=== PATIENT | male | born 1955 | race Caucasian/White ===

== ENCOUNTER → 2020-10-27 | Outpatient (CLI) | payer OTHER ==
[2020-10-27 16:09] LABS: HGB 14.5 gm/dL (13.0-17.5); MCH 30.4 pg (25.0-35.0); MCHC 34.6 g/dL (31.0-37.0); MCV 87.8 fL (80.0-100.0); Mean Platelet Volume 7.9; Platelet Count 134 k/uL (150-450); RBC 4.78 m/uL (4.30-5.90); RDW 12.7 % (11.5-15.5); WBC 6.5 k/uL (3.8-10.6)
[2020-10-27 16:17] LABS: Partial Thromboplastin Time 23.8 sec (22.0-30.0); Prothrombin Time 9.9 sec (9.0-12.0)
[2020-10-27 16:18] LABS: ALT 36 U/L (4-49); AST 31 U/L (17-59); African American GFR (CKD) >90 (>60 ml/min/1.73 sqM); Albumin 4.8 g/dL (3.5-5.0); Alkaline Phosphatase 60 U/L (38-126); Anion Gap 5 mmol/L; Blood Urea Nitrogen 27 mg/dL (9-20); Calcium 9.3 mg/dL (8.4-10.2); Carbon Dioxide 26 mmol/L (22-30); Chloride 107 mmol/L (98-107); Glucose 105 mg/dL (74-99); Non-African American GFR(CKD) >90 (>60 ml/min/1.73 sqM); Potassium 4.6 mmol/L (3.5-5.1); Sodium 138 mmol/L (137-145); Total Bilirubin 0.6 mg/dL (0.2-1.3); Total Protein 7.5 g/dL (6.3-8.2)
[2020-10-27 16:57] LABS: Appearance,Urine Clear (Clear); Bilirubin,Urine Negative (Negative); Blood,Urine Negative (Negative); Color,Urine Yellow; Glucose,Urine (UA) Negative (Negative); Ketones,Urine Negative (Negative); Leukocyte Esterase,Urine Negative (Negative); Nitrite,Urine Negative (Negative); Protein,Urine Negative (Negative); Specific Gravity,Urine 1.027 (1.001-1.035); Urobilinogen,Urine <2.0 mg/dL (<2.0)
== END | disposition home or self-care (01) ==
LOC: LABPAT 15:31
PROVIDERS: ATTEND Orthopaedic Surgery
DX: Z01.818 Encounter for other preprocedural examination (principal); Z01.812 Encounter for preprocedural laboratory examination
CPT/HCPCS: 80053; 81003; 85027; 85610; 85730; 87070; 93005

== ENCOUNTER 2020-11-06 10:48 | Day surgery (SDC) | payer OTHER ==
[2020-11-04 11:27] VITALS: BMI 30.8
[~2020-11-06 10:48] MED LIST: ACETAMINOPHEN TAB 500 MG TAB PO PRN; GABAPENTIN 300 MG CAP PO PRN; HYDROmorphone 0.5 MG/0.5 ML SYRINGE IVP PRN; LACTATED RINGERS 1,000 ML IV SCH; MELOXICAM 7.5 MG TAB PO PRN; MIDAZOLAM 2 MG/2 ML VIAL IV PRN; ONDANSETRON 4 MG/2 ML VIAL IVP PRN; Ropivacaine 246 mg in RECK SYR 246 MG, Epinephrine 0.5 mg in RECK SYR 0.5 MG, Clonidine... MISCELLANE PRN; TRANEXAMIC ACID 1,000 MG in SODIUM CHLORIDE 0.9% 100 ML IVPB PRN
[2020-11-06] MEDS ORDERED: MIDAZOLAM 2 MG/2 ML VIAL IVP ONE (12:05)
[2020-11-06] MEDS ORDERED: DEXAMETHASONE SOD PHOSPHATE 4 MG/ML 1 ML VIAL IVP ONE (12:23)
[2020-11-06] MEDS ORDERED: TRANEXAMIC ACID 1,000 MG/10 ML VIAL ONE (12:31)
[2020-11-06] MEDS ORDERED: SODIUM CHLORIDE 0.9% 100 ML BAG ONE (12:31)
[2020-11-06] MEDS ORDERED: ePHEDrine SULFATE/0.9% NACL/PF 50 MG/5 ML SYRINGE IV ONE (12:31)
[2020-11-06] MEDS ORDERED: LIDOCAINE 1% INJ 10MG/ML (20 ML MDV) ONE (12:31)
[2020-11-06] MEDS ORDERED: fentaNYL (PF) 50 MCG/ML 2 ML AMP ONE (12:31)
[2020-11-06] MEDS ORDERED: MIDAZOLAM 2 MG/2 ML VIAL ONE (12:31)
[2020-11-06] MEDS ORDERED: HYDROmorphone (PF) 1 MG/ML ONE (12:31)
[2020-11-06] MEDS ORDERED: PROPOFOL 10 MG/ML 20 ML VIAL IV ONE (12:31)
[2020-11-06] MEDS ORDERED: SUCCINYLCHOLINE CHLORIDE 100 MG/5 ML SYR IV ONE (12:31)
[2020-11-06] MEDS ORDERED: ROPIVACAINE/EPI/CLONIDINE/KET 50 ML SYRINGE MISCELLANE ONE ×2 (13:14)
[2020-11-06] MEDS ORDERED: ceFAZolin 3,000 MG in SODIUM CHLORIDE 0.9% IRRIGATIO 3,000 ML IRRIGATION ONE (13:15)
[2020-11-06] MEDS ORDERED: LACTATED RINGERS 1,000 ML IV ONE (13:18)
[2020-11-06] MEDS ORDERED: ROPIVACAINE 0.2%-NS ON-Q PUMP 1,090 MG, EMPTY PAIN BALL 1 EACH MISCELLANE PRN (13:32)
--- NOTE | 2020-11-06 13:35 | P.ANPRN ---
Procedure Note - Anesthesia - Nerve Block Performed Right Adductor Canal Time Out Performed: Yes (12:04) Date of Procedure: 11/06/20 Procedure Start Time: Procedure Stop Time: Indication: Acute Post-Operative Pain, Requested by Surgeon (Dr Rhoades) Sedation Type: Sedate with meaningful contact maintained Preparation: Sterile Prep, Sterile Dressing Position: Supine Catheter: Indwelling Needle Types: Pajunk Needle Gauge: 21 Ultrasound used to visualize needle placement: Yes Ultrasound used to observe medication spread: Yes Injectate: 0.5% Ropivacaine (see comment for volume) (20cc) Blood Aspirated: No Pain Paresthesia on Injection Noted: No Resistance on Injection: Normal Image Stored and Saved: Yes Events: Uneventful and Well Tolerated
--- NOTE | 2020-11-06 15:25 | XR ---
EXAMINATION TYPE: XR knee limited RT DATE OF EXAM: 11/06/2020 COMPARISON: None HISTORY: Partial knee replacement TECHNIQUE: 2 view right knee FINDINGS: Medial tibial femoral components of in place. Surgical soft tissue changes are evident. No acute fractures are evident post partial knee replacement IMPRESSION: 1. No acute fractures post knee replacement
[2020-11-06 16:38] VITALS: BP 154/72; PULSE 78; RESP 18; TEMP 98.6
--- NOTE | 2020-11-06 22:14 | P.OP ---
Date of Procedure: 11/06/20 Procedure(s) Performed: UKA medial ZUK [employer] with [employer] custom guides for initial femoral and tibial cuts minimal arthritic change of lateral and patellofemoral compartments yasmeen de los santos 50 cc ebl no complications PREOPERATIVE DIAGNOSIS: Right knee severe medial compartment osteoarthritis with genu varum POSTOPERATIVE DIAGNOSIS: Right knee severe medial compartment osteoarthritis with genu varum OPERATION: Right knee medial compartment cemented unicompartmental replacement arthroplasty (metal on polyethylene) ANESTHESIA: Spinal ESTIMATED BLOOD LOSS: 50 ml. ROSE GROWER: Yasmeen De Los Santos PA-C (assistance with: patient positioning, retraction, exposure, hemostasis, leg positioning, implantation, irrigation, closure, dressing) COMPLICATIONS: None apparent. COMPONENTS IMPLANTED: Nishi unicompartmental knee system from [employer] INDICATIONS: Mr. Steel is a 65-year-old male with a history of right knee unicompartmental medial osteoarthritis. Conservative management has failed. He has a mild degree of arthritis involving the patellofemoral and lateral compartments. The operation of medial unicompartmental knee replacement has been discussed at length in the office, as well as potential risks and complications. These are inclusive of, but not limited to: bleeding, infection, scarring, discomfort, blood vessel and nerve damage, need for further surgery, failure to relieve symptoms, persistence, recurrence, or worsening of problems, loosening, dislocation, wear, blood clot, pulmonary embolism, , gait dysfunction, stiffness, and other risks as discussed in the office. The patient elects to proceed and the consent form has been signed. PROCEDURE: The patient was taken to the operating room and positioned on the operating room table in the supine position. Anesthesia was initiated. Care was taken to make sure that all pressure points were adequately padded. The operative lower extremity was prepped and draped in the usual aseptic fashion using ChloraPrep. Ioban drape was used for the case and the patient received intravenous antibiotics within one hour of the incision. A pneumotourniquet and leg aguayo were used for the case. The limb was exsanguinated with an Esmarch bandage and the tourniquet was inflated to 350 mmHg. Time-out was called confirming the patient's identity, side, procedure and administration of antibiotics and tranexamic acid. The incision was then created over the medial aspect of the knee from approximately the superior pole of the patella down to adjacent to the tibial tubercle. Incision was carried down through skin and into subcutaneous tissues and sharp dissection was carried down to fascia. Hemostasis was obtained using electrocautery. Medial parapatellar arthrotomy was performed from approximately the level of the VMO to just below the tibial surface. Partial fat pad was res ected and due to the previous surgeries this patient has had, the fat pad was somewhat scarred. These adhesions within the fat pad were released using cautery. This allowed better patellar mobilization. Excellent visualization of the medial compartment was accomplished. Retractors were placed within the notch and the medial condyle. Careful release of the anterior medial soft tissues from bone was accomplished using sharp dissection. This was carried to but not into the medial collateral ligament. Tibial cut was performed first. The guide for the tibial cut was attached to the patient's lower extremity and the guide was placed against the bone. Materialize guides were used which allowed for computer analysis and planning for the actual cut to be precisely matched to this patient's anatomy. The depth of resection and alignment of the cut in all planes was determined by the guide. The guide was then pinned into position and the cut was created using an oscillating saw along with a reciprocating saw for the sagittal cut. The tibial fragment was then removed and the surface finished. Medial meniscus remnant was removed at this time. Femoral cut was created in the same fashion using a custom [employer] guide for depth of resection and alignment of the cut. The distal femoral cut was then created through this guide and the fragment was removed. Flexion and extension gaps were then assessed and found to be satisfactory using spacer block technique. The knee was then bent to 90 retractors were placed and the guide for femoral finishing was placed. Femur was finished using this guide. Next, tibia was sized and finished and the trial component was left in place. Femoral trial component was placed, and 8 mm spacer was utilized for trial. Excellent range of motion, stability, and alignment were noted. The trial components were then removed and the femoral and tibial surfaces were pulse lavaged and dried for cementing. Cement was mixed on the back table and applied to the final components. Cement was also pressurized into the bone with finger pressurization technique. Final components were then impacted into place and excess cement was removed. The 8 mm trial spacer was laced during this process. Axial force was applied to the leg during the curing process of the cement. Once the cement had fully hardened, excess cement was further removed, and the knee was assessed for range of motion stability and alignment based on the thickness of the planned polyethylene spacer. The 8 mm spacer was called for and implanted. Final range of motion and stability check was satisfactory. The tourniquet was deflated and hemostasis was obtained with electrocautery, another gram of tranexamic acid, and bone wax. Closure was performed of the fascia using a combination of #2 Ethibond suture as well as a running strata fix suture. Subcu closure was performed with 2-0 Vicryl suture in interrupted fashion followed by strata fix suture in running subcuticular fashion for the skin and Exofin topical dressing. A lightly compressive dressing was applied using Webril and an Roland wrap. The patient was then transferred to stretcher and taken to the recovery room in stable condition. Sponge and needle counts were correct.
== END 2020-11-06 18:47 | disposition home or self-care (01) ==
LOC: OR 10:48 → 4SSUR 14:54 → OR 18:47
PROVIDERS: ATTEND Orthopaedic Surgery
DX: M17.11 Unilateral primary osteoarthritis, right knee (principal); M23.203 Derangement of unspecified medial meniscus due to old tear or injury, right knee; I10 Essential (primary) hypertension; J45.909 Unspecified asthma, uncomplicated; G47.33 Obstructive sleep apnea (adult) (pediatric); Z79.899 Other long term (current) drug therapy; Z79.82 Long term (current) use of aspirin; Z90.89 Acquired absence of other organs; Z98.890 Other specified postprocedural states; Z97.3 Presence of spectacles and contact lenses
CPT/HCPCS: 27446; 64448; 76942; 88300; 73560; C1713; C1776; J2250; J1100; J0690 ×2; J2405; J2001; J3010; J1170; J0330; J2704

== ENCOUNTER → 2021-12-01 | Outpatient (CLI) | payer OTHER ==
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
== END | disposition home or self-care (01) ==
LOC: RADMRIMAIN 20:32
PROVIDERS: ATTEND Orthopaedic Surgery
DX: M47.812 Spondylosis without myelopathy or radiculopathy, cervical region (principal); M43.22 Fusion of spine, cervical region; M43.12 Spondylolisthesis, cervical region; M50.223 Other cervical disc displacement at C6-C7 level; M99.71 Connective tissue and disc stenosis of intervertebral foramina of cervical region
CPT/HCPCS: 72141

== ENCOUNTER → 2022-03-11 | Outpatient (CLI) | payer OTHER | END | disposition home or self-care (01) | LOC: LABPAT 11:03 | PROVIDERS: ATTEND Orthopaedic Surgery | DX: Z01.812 Encounter for preprocedural laboratory examination (principal); M48.02 Spinal stenosis, cervical region; Z22.322 Carrier or suspected carrier of Methicillin resistant Staphylococcus aureus | CPT/HCPCS: 87070 ==

== ENCOUNTER → 2022-07-07 | Outpatient (CLI) | payer MEDICARE ==
--- NOTE | 2022-07-08 06:49 | CT ---
EXAMINATION TYPE: CT cervical spine wo con DATE OF EXAM: 07/07/2022 COMPARISON: MRI cervical spine December 01, 2021 HISTORY: Cervical stenosis CT DLP: 579.8 mGycm. Automated Exposure Control for Dose Reduction was Utilized. TECHNIQUE: CT scan of the cervical spine is obtained without contrast, axial images are obtained, sa gittal and coronal reformatted images are also reviewed. FINDINGS: Coronal images show persistent dextroconvex scoliosis centered in the upper thoracic spine. There is slight grade 1 retrolisthesis C4 on C5 redemonstrated.. Prevertebral soft tissue appears w ithin normal limits. The C1-C2 articulation is within normal limits on the coronal images. Vertebral body heights are maintained. There is severe disc space narrowing with posterior ossific fusion invo lving the C5-C6 vertebra. There is some ossific fusion of the spinous processes at C5-C6 level. Mild disc space narrowing C4-C5 level with mild to moderate anterior spurring. Moderate to severe disc spa ce narrowing and spurring at C6-C7 level. Review of axial images shows C2-C3 level to appear within normal limits. Axial images at C3-C4 level shows broad-based posterior disc protrusion effacing anterior thecal sac with bilateral uncovertebral facet spurring causing mild to moderate left greater than right bilatera l neural foraminal narrowing. Axial images at C4-C5 level shows broad-based right paracentral disc protrusion with right foraminal spurring effacing anterior thecal sac and causing asymmetric moderate to severe right-sided neural fo raminal narrowing. Axial images at C5-C6 level appear within normal limits. Axial images at C6-C7 level show broad-based left paracentral spur disc complex with foraminal spurri ng causing moderate to severe left greater than right bilateral neural foraminal narrowing. Axial images at C7-T1 level appear within normal limits. Thyroid gland appears normal in size. Lung a pices show no pneumothorax. IMPRESSION: Dextroconvex scoliosis redemonstrated. Some ossific fusion at C5-C6 level is noted. Mult ilevel degenerative changes are present with greatest findings noted C4-C5 and C6-C7 levels as detail ed above.
== END | disposition home or self-care (01) ==
LOC: RADCTMAIN 16:28
PROVIDERS: ATTEND Orthopaedic Surgery
DX: M48.02 Spinal stenosis, cervical region (principal); M50.21 Other cervical disc displacement, high cervical region
CPT/HCPCS: 72125

== ENCOUNTER 2022-07-18 08:28 | Observation (INO) | payer MEDICARE ==
--- NOTE | 2022-07-18 07:16 | P.HPOR ---
History of Present Illness H&P Date: 07/08/22 Chief Complaint: Neck pain, Arm weakness [facility] History and Physical Date of :[birth year] Age: 67 year Height: 6'2" Weight: 216 lbs BP:134/86 BMI: 27.73 kg/m2 Occupation: [employer] VAS: 3 CHIEF COMPLAINT: Recheck cervical spine DOI: Acute on chronic, recent fall 06/19/2022 DOS: None Duration of current treatment regiment: 6 months HISTORY: Xrays No new xrays taken in office Trauma or injury No Work-Related No Pain description aching, burning, sharp. Location diffuse Patient notes that their pain radiates to left upper extremity Activity Modification yes , difficulty with fine motor function left hand Hand Dominance right TREATMENTS COMPLETED: 6 weeks of PT completed? Month and Year of last PT date? 12/2021 Yes How many sessions? 12 Did it help? No Physician recommended home exercise completed? Duration of HEP course: Current yes Patient has trialed the physician directed home exercise program for (without) relief of their symptoms. Medications yes List: IBU 400-600mg OTC PRN, Tylenol without any relief of his symptoms. Alternative interventions Chiropractic: yes , without relief. Massage therapy: No R.I.C.E: yes , ice and heat without relief. Brace: No Injections No RFA: No SUBJECTIVE: Patient returns for another pre-operative appointment regarding his neck. Patient reports no symptom changes, no new treatment modalities, and is having significant debility impacting his ability to perform most daily functions. Patient expressed understanding of the surgery and wishes to proceed. Otherwise the patient continues to deny any f/c/sob/cp, no bladder or bowel retention/incontinence, no perineal numbness/tingling, and ambulates independen tly. HPI: Mr. Echeverria last presented on 06/24/2022 to the office for an recheck and pre- operative review of their cervical spine and planned C4-C5, C6-C7 TDR. Patient reports a continued burning, sharp cervical pain ongoing for over a year with no known injury or trauma to indicate an exact onset of their symptoms. In addition to their cervical pain, they do report that it radiates into the left upper extremity, associated with numbness and tingling through the arm diffusely. With this the patient does also report significant loss in gross and fine motor function and increase in overall weakness. Overall the patient has seen a progressive increase in symptoms since their onset. Mr. Echeverria symptoms are exacerbated with most daily activities, due to this they notes that it is increasingly difficult for Mr. Echeverria to complete many of their daily tasks. Patient is having moderate sleep disturbances as well due to their ongoing pain and associated symptoms. Regarding treatments, the patient has previously trialed all abovementioned treatment modalities without any relief of his symptoms. Patient denies trialing any other modalities at this time. For their symptoms, the patient has been taking both Ibuprofen and Tylenol OTC without any relief of his symptoms. Otherwise the patient denies any f/c/sob/cp, no bladder or bowel retention/incontinence, no perineal numbness/tingling, and ambulates independently. Mr. Echeverria was last seen on 03/11/2022 regarding a recheck of his cervical spine and a pre-op visit regarding his planned C4-C5, C6-C7 total disc replacement. Since the time of the last appointment the patient reports that he is having continued symptoms and dysfunction. He denies any improvements to his symptoms since the time of the last appointment and has failed to improve with all conservative treatment modalities. He reports significant impairment when trying to complete daily tasks due to pain and is ready to proceed with the planned procedure. Patient denies any bladder or bowel retention/incontinence, no perineal numbness/tingling, and ambulates independently. Mr. Steel last presented to the office on 01/12/2022 to review his cervical MRI obtained after his last appointment. Since the time of the last appointment the patient reports that his symptoms have not changed. He has finished his course of PT and continued with the physician directed HEP both without any improvements. Additionally he has been taking Ibuprofen 400-600mg OTC PRN with mild and temporary improvements to his symptoms. Overall he reports continued dysfunctions and cannot complete many of his daily tasks due to the nature of his pain. Of note, the patient does report having urinary incontinence increased over the course of the last 6 months. Patient reports difficulties with holding in urine as well as stopping the flow. He is currently taking Flomax for this with mild improvements. Otherwise the patient reports any bowel incontinence, no perineal numbness/tingling, and ambulates independently. Mr. Steel was last seen on 10/20/2021 via phone call regarding updates on his continued conservative treatment. Since the time of the last appointment the patient notes that he has completed his round of PT, done home exercises consistently, and continued taking medications all without improvements to his symptoms. Overall the patient reports the persistence of his cervical pain as well as left upper extremity weakness. He states that his symptoms have continued to progress and his is finding it increasingly difficult to complete his daily functions due to this. 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 Otherwise the patient denies any bladder or bowel issues, denies any perineal numbness/tingling, ambulates without the use of any aides, and denies any recent falls or trauma that have exacerbated his symptoms. Patient was last seen on 08/13/2021 via televisit regarding his neck. Spoke to patient over the phone. Continues to have neck pain as well as LUE pain that is getting worse. States difficulty holding his coffee mug this AM in the L. States weakness. Denies any bowel bladder sx. Denies any falls. Mr. Steel was last seen on 06/18/2021 regarding his neck. He was referred to Dr. Hidalgo by Dr. Miller for loss of function in his left hand and right shoulder pain. 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 Additionally, the patient does have pain primarily in the center of his neck that does radiate into his bilateral extremities. His weakness in his upper extremities, left worse than right, is his biggest concern at this point. Other than this, he does report issues with balance as well. He does do home exercises with moderate improvement to his symptoms. Mr. Steel does state that he has seen a chiropractor previously for this pain without relief of his symptoms. Denies any improvement to his pain with Ibuprofen PM. The patients' past social, medical, family, surgical history, as well as review of systems, have been reviewed. Please refer to the Neurosurgery History and Physical form that has been scanned in to our electronic medical record system. 16 points review of systems completed and as stated in HPI, all other systems reviewed are negative. Social History: Reviewed, see appropriate section of the chart for details. P3 Social History: Smoking: never a smoker P3 Alcohol: currently drinks alcohol P3 Family History: Reviewed, see appropriate section of the chart for details. P2 Past Medical History: Reviewed, see appropriate section of the chart for details. P1 Current Medications: Rx: aspirin 81 mg tablet,delayed release Ref: 0 Rx: Flomax 0.4 mg capsule Ref: 0 Rx: lisinopriL 10 mg tablet Ref: 0 Rx: sildenafiL 25 mg tablet Ref: 0 Rx: Ventolin HFA 90 mcg/actuation aerosol inhaler Ref: 0 Rx: ibuprofen Ref: 0 Rx: TylenoL 325 mg capsule Ref: 0 PHYSICAL EXAMINATION: POSTURAL and MUSCULO-SKELETAL EVALUATION: Coronal Balance: NEUTRAL Recumbent testing: Patient is able to lay flat on back Sagittal Balance: NEUTRAL Shoulder Profile: LEVEL Pelvic Girdle: LEVEL Neck ROM: RESTRICTED Lumbar ROM: UNRESTRICTED Shoulder ROM: Symmetrical Hip ROM: Symmetrical Knee ROM: Symmetrical Hands: Normal appearance, symmetrical Feet: Normal appearance, Symmetrical VASCULAR STATUS : LEFT RIGHT Wrist Pulses INTACT INTACT Pedal Pulses (Dors. pedis & post.tibialis) INTACT INTACT Color NORMAL NORMAL Edema Absent Absent NEUROLOGIC EXAMINATION: Mental Status:Awake and alert, fully oriented, with normal attention, concentration and memory, and fluent, appropriate speech. Cranial Nerves: I: Olfactory not tested. II: Visual acuity normal, no visual field deficit noted with confrontation. III,IV: Normal pupillary reflexes & intact extraocular movements without nystagmus. V,: Intact symmetrical facial sensation. VII: Intact symmetrical facial motor movement VIII: Hearing intact. IX,X: Intact gag, swallow, & normal voice. XI: Sternocleidomastoid, trapezius function intact. XII: Tongue midline with normal movements. L'hermitte's Sign: Negative / absent Spurling'Sign: Absent bilaterally. Cubital percussion test: Absent bilaterally. Meagan-Tinel sign - Carpal region: Absent bilaterally. Straight Leg Raising: Absent bilaterally. Crossed straight leg raise: negative O8 MOTOR EXAM (0-5/5, N/T) STRENGTH RIGHT LEFT Shoulder Abd (not part of the SILVIA score) 5 4 Elbow Flexors 5 4 Elbow Extensor 5 4 Wrist Dorsiflexors 5 5 Finger Abductor 5 5 Belt And Link Shop Supervisor 5 5 Hip Flexor (Not part of SILVIA Motor score) 5 5 Knee Flexor 5 5 Knee Extensor 5 5 Ankle dorsiflexor 5 5 Ankle plantarflexion 5 5 Extensor hallucis 5 5 REFLEXES(0-4/2, NT) RIGHT LEFT Upper Extremities 2 2 Lower Extremities 2 2 Pathological Reflexes RIGHT LEFT Mcarthur's Present Present Clonus Absent Absent Babinski Absent Absent # Indicates mechanical impairment Muscle appearance: Symmetrical Rectal Tone:Deferred Normal, strong with volition control Sensory system (0-4, N/T) Test type RU ECTOR RL LL Joint-Position 2 2 2 2 Vibration 2 2 2 2 Pain & LT sense 2 2 2 2 Dermatomal Deficit: None None None None Gait and Functional Evaluation: Ambulatory aids: Independent Romberg's test: Intact bilaterally Toe heel walk / heel-toe walk intact while maintaining satisfactory balance? yes Squatting/straightening w/o assistance to a min of 60 degree knee flexion? yes Single leg stance: intact Trendelenburg sign negative bilaterally Hand and finger dexterity intact bilaterally? yes Disdiadochokinesis examination negative bilaterally? yes RADIOGRAPHIC STUDIES: XRay taken on 06/18/21 of Cervical was reviewed by Dr. 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 There is adjacent segment disease proximally and distally at C6 7 and C4 5. There is smart severe spondylosis at C6-C7. No fracture or dislocations noted several cervical C1 2 joints appear stable through flexion extension there is a mild grade 1 spondylolisthesis C4 and C5 however this may be physiologic. MRI scan from 12/01/2021 of Cervical Spine: this demonstrates again a couple file like syndrome with auto fusion C5-C6. There is adjacent segment disease proximally at C4-C5 and at C6-C7 caudally. There is stenosis related to this disc desiccation and disc height loss at these levels. There is foraminal stenosis related to this as well. No acute fracture or dislocation is noted C1 2 joints and occipitocervical joints appear stable subaxial cervical spine is relatively stable to mild grade 1 anterolisthesis C3 on C4. IMPRESSION: It was my pleasure to have seen and examined Shalom Mccollum. I reviewed the patient's clinical syndrome, physical findings, and imaging studies during the appointment today. It is my impression that the patient has a diagnosis of. 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 LUE weakness 4.C4-5 and C6-7 spondylosis with stenosis I outlined the natural course history without intervention and various interventional options. PLAN: Based on my findings I suggest the following course of action: -Advised patient to continue with supplements, health maintenance, and home exercise programs. Patient expressed understanding and will continue with these modalities. - I discussed treatment options with the patient, including operative and non- operative options, and they have elected to proceed with the following surgical procedure: C4-C5, C6-C7 total disc replacement with possible fusion. The indications, risks, benefits, and alternatives to surgery were discussed with the patient at length. Specifically (but not limited to) the risks of infection, stiffness, recurrence of symptoms, need for revision surgery, local numbness, neurovascular injury, and blood clots were discussed. The patient's questions were answered. The decision to proceed was made. Consent will be obtained for the procedure. We discussed the possiblity of fusion if the replacements do not fit well or there are issues with his anatomy and he agreed to this as well. Spine Surgery Risk Review Shalom Steel is presenting for evaluation of cervical pain. It was my p idalia to have seen and examined Shalom Steel. In our visit today we have had a chance to go over subjective complaints, physical examination findings and treatments including the natural course history without intervention and various interventional options. 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 There is adjacent segment disease proximally and distally at C6 7 and C4 5. There is smart severe spondylosis at C6-C7. No fracture or dislocations noted several cervical C1 2 joints appear stable through flexion extension there is a mild grade 1 spondylolisthesis C4 and C5 however this may be physiologic. MRI: this demonstrates again a couple file like syndrome with auto fusion C5-C6. There is adjacent segment disease proximally at C4-C5 and at C6-C7 caudally. There is stenosis related to this disc desiccation and disc height loss at these levels. There is foraminal stenosis related to this as well. No acute fracture or dislocation is noted C1 2 joints and occipitocervical joints appear stable subaxial cervical spine is relatively stable to mild grade 1 anterolisthesis C3 on C4. On physical exam, Shalom Steel demonstrates left upper extremity radiculopathy with weakness and severely restricted ROM regarding the cervical spine. I have explained to the patient that as their condition progresses it will cause further neurological deficits and eventual paralysis. Based on the patients im aging, physical exam, and the rapid progression and disabling nature of their symptoms, at this time I recommend surgery in the form or a: C4-C5, C6-C7 total disc replacement with possible fusion. I discussed the risk and benefits of this procedure at length with Shalom Steel. The patient agreed to considered pursuing the procedure abovementioned. Prior to surgery, she should follow up with her PCP (Cardio, ID, IM etc) for clearance. Questions were invited and answered, and the patient wishes to proceed as outlined below. Currently, I am recommendin.C4-C5, C6-C7 total disc replacement with possible fusion. 2.Follow up with PCP for surgical clearance 3.Review of surgical risks and benefits as well as an educational packet on the proposed surgical procedure. Risks: All surgical procedures come with inherent risks, including those related to positioning, anesthesia, intraoperative findings, and postoperative complications. It is important to understand that surgery does not come with any guarantee of a successful outcome as complications and adverse events are always possible. The patient was given a handout in office today discussing the surgical procedure and risks associated with the intervention, both of which were discussed with the patient. These risks include but are not limited to the following: * Experiencing same, different or even worse symptoms in back, neck, arms, or legs compared to before surgery. Requiring further surgery or other forms of treatment presently or at some time in the future at same or other levels of the intended spine surgery. On an extreme but fortunately relatively rare basis severe complication such as blindness, stroke, heart attack, temporary and/or permanent nerve injury, paralysis, coma, or may occur, sometimes without known explanation. Surgical complications may include but are not limited to risk of infection, fluid accumulation in the surgical dissection site, including a seroma or hematoma, that requires additional surgery, wound drainage, bleeding, new numbness or weakness, vision changes/loss, spinal fluid leakage, non-healing and/or infected incision, headaches, difficulty or inability to swallow, hoarseness, hemopneumothorax, pneumothorax, impotence, retrograde ejaculation, vaginal dryness; injury to nerves, spinal cord, blood vessels, lymphatics or other vital organs (i.e., bowel injury, injury to the great vessels); heterotopic bone formation; complications related to the hardware such as screws, rods, cages including misplaced hardware, device failure, instrumentation at the wrong spine level, hardware fracture/breakage, or hardware loosening; vertebral failure of the spinal column above or below the newly placed hardware; retained surgical instrumentations or devices and the need for further surgery. * Medical risks of the planned spine surgery include but are not limited to generalized Infections to the whole body or local areas outside of the surgical site (sepsis), heart attack, bleeding, anaphylaxis, meningitis, seizure, epilepsy, hearing loss, burn ramos, laceration of the head or other areas of the body, bruising, hypersensitivity of the skin, bladder over distension; allergic reaction; shoulder injury related to positioning; fat, blood and air clots to other areas of the body like heart, lungs, brain; failure of internal organs such as lungs, kidneys, liver and excessive bleeding. If blood transfusions are necessary, note that transfusions may cause intolerance reactions such as anaphylaxis or other complex reactions. Despite best efforts, the results of spine surgery might not heal in terms of b one, soft tissues such as skin, fascia, ligaments, and joints. Additionally, in order to achieve best possible results, spine surgery may be carried out beyond the initially planned levels and involve decompression, fusion including insertion of hardware at levels other than the original intended area of surgical interest change some portions of the procedure in order to ensure the best possible outcomes. With spine surgery and spinal fusion, there are different off label uses of instrumentation (devices, implants and hardware) as well as biological substances (bone morphogenic proteins, demineralized bone matrix) as well as using extra bone from allograft sources (i.e. cadaver bone) or autograft (iliac crest bone, ribs, or the spine itself). The patient has been given information about these practices and their inherent risks and benefits. [facility] is an educational center that serves as a training facility for neurosurgical and orthopedic [employer] and Nursing students. Physician assistants are medically trained surgical providers who function in the outpatient, inpatient, and operating room setting under the direct supervision of the attending surgeon. [facility] has multiple operating rooms with single and overlapping rooms running daily. They currently function under the required guidelines as produced by the [facility] Finance Committee with regards to the overlapping rooms and will continue to comply with changes to this policy as they occur. The requirements include and are complied with as follows: (1) the critical portions of the overlapping rooms will not occur at the same time, (2) the attending physician will be physically present during the critical portions of the procedure and immediately available during the entire case, and (3) a back-up attending is designated should the primary attending not be immediately available. The patient has had a chance to review all the listed information, has been given print outs detailing this information, and has had all his/her questions answered to their satisfaction. It was my pleasure to have seen and examined Shalom Steel. In our visit today we have had a chance to go over my understanding of our patient's current condition, the natural course history without intervention and various interventional options. Questions were invited and answered, and the patient wishes to proceed as outlined above. I have seen and examined the patient for 25 minutes and we have spent more than 50% of the time in repeat and detailed counseling about the patient's condition, its natural course history with out and as much as can be predicted with surgery and re-review of various surgical treatment options. In conclusion, Shalom Steel requested we proceed with the above suggested surgery and are willing to accept risks and limitations of the suggested surgery as nature of the disease process and our best attempts at treatment for the condition. Past Medical History Past Medical History: Asthma, Hearing Disorder / Deafness, Hypertension, Musculoskeletal Disorder, Prostate Disorder, Sleep Apnea/CPAP/BIPAP Additional Past Medical History / Comment(s): Exercise induced asthma. Tinnitus. Sl enlarged prostate. Uses CPAP. Cervical disc prob, some hearing loss in rt ear History of Any Multi-Drug Resistant Organisms: None Reported Past Surgical History: Appendectomy, Hernia Repair, Tonsillectomy Additional Past Surgical History / Comment(s): Hernia x3 Abdominal. partial Rt knee. Past Anesthesia/Blood Transfusion Reactions: Previous Problems w/ Anesthesia Additional Past Anesthesia/Blood Transfusion Reaction / Comment(s): Slow to awaken. no BLood transfusions Smoking Status: Never smoker - Past Family History Mother Family Medical History: Cancer Additional Family Medical History / Comment(s): ovarian cancer Father Family Medical History: Cancer Additional Family Medical History / Comment(s): colon cancer Medications and Allergies Home Medications Medication Instructions Recorded Confirmed Type Albuterol Inhaler [Ventolin Hfa 2 puff INHALATION RT-QID PRN 11/04/20 07/13/22 History Inhaler] Aspirin [Adult Low Dose Aspirin EC] 81 mg PO DAILY 11/04/20 07/13/22 History Ibuprofen [Motrin Ib] 400 mg PO Q8H PRN 11/04/20 07/13/22 History Mometasone Furoate [Nasonex Nasal 2 spr EA NOSTRIL DAILY 11/04/20 07/13/22 History [place]] Multivitamins, Thera [Multivitamin 1 tab PO DAILY 11/04/20 07/13/22 History (formulary)] Sildenafil [Revatio] 20 mg PO DIRECTED PRN 11/04/20 07/13/22 History Tamsulosin [Flomax] 0.4 mg PO BID 11/04/20 07/13/22 History lisinopriL [Zestril] 30 mg PO HS 11/04/20 07/13/22 History Allergies Allergy/AdvReac Type Severity Reaction Status Date / Time house dust Allergy congestion Verified 07/13/22 13:33 Physical Examination Osteopathic Statement: *. No significant issues noted on an osteopathic structural exam other than those noted in the History and Physical/Consult.
[~2022-07-18 08:28] MED LIST changes: +DEXAMETHASONE SOD PHOSPHATE 4 MG/ML 1 ML VIAL IV ONE; -HYDROmorphone 0.5 MG/0.5 ML SYRINGE IVP PRN; -LACTATED RINGERS 1,000 ML IV SCH; -MELOXICAM 7.5 MG TAB PO PRN; -MIDAZOLAM 2 MG/2 ML VIAL IV PRN; +ONDANSETRON 4 MG/2 ML VIAL IVP ONE; -Ropivacaine 246 mg in RECK SYR 246 MG, Epinephrine 0.5 mg in RECK SYR 0.5 MG, Clonidine... MISCELLANE PRN; -TRANEXAMIC ACID 1,000 MG in SODIUM CHLORIDE 0.9% 100 ML IVPB PRN; +TRANEXAMIC ACID IN NACL,ISO-OS 1,000 MG in SALINE 1 100ML.BAG IVPB PRN
[2022-07-18] MEDS: LACTATED RINGERS 1,000 ML IV SCH ×2 (09:04→09:15)
--- NOTE | 2022-07-18 09:17 | P.PN ---
Progress Note - Text Progress Note Date: 07/18/22 HP Update: The patient was seen and examined in Pre op. All protocols followed. H&P reviewed and there are no significant changes since H&P. Pt is ready and willing to proceed.
[2022-07-18] MEDS ORDERED: ePHEDrine 50 MG/ML 1 ML VIAL ONE (09:23)
[2022-07-18] MEDS ORDERED: PROPOFOL 10 MG/ML 20 ML VIAL IV ONE (09:23)
[2022-07-18] MEDS ORDERED: fentaNYL (PF) 50 MCG/ML 2 ML AMP ONE (09:23)
[2022-07-18] MEDS ORDERED: WATER FOR INJECTION, STERILE 10 ML VIAL IV ONE (09:23)
[2022-07-18] MEDS ORDERED: TRANEXAMIC ACID IN NACL,ISO-OS 1,000 MG/100 ML BAG ONE (09:23)
[2022-07-18] MEDS ORDERED: MIDAZOLAM 2 MG/2 ML VIAL ONE (09:23)
[2022-07-18] MEDS ORDERED: PHENYLEPHRINE-0.9% NACL SYG 1,000 MCG/10 ML SYRINGE ONE (09:23)
[2022-07-18] MEDS ORDERED: KETAMINE 10 MG/ML 20 ML VIAL ONE (09:23)
[2022-07-18] MEDS ORDERED: HYDROmorphone (PF) 1 MG/ML ONE (09:23)
[2022-07-18] MEDS ORDERED: SUCCINYLCHOLINE CHLORIDE 200 MG/10 ML VIAL IV ONE (09:23)
[2022-07-18] MEDS ORDERED: LIDOCAINE 2% INJ 20 MG/ML (2 ML VIAL) ONE (09:23)
[2022-07-18] MEDS ORDERED: THROMBIN (BOVINE) 5,000 UNIT VIAL TOPICAL ONE (10:29)
[2022-07-18] MEDS ORDERED: GELATIN SPONGE,ABSORB (LARGE) 1 EACH SPONGE TOPICAL ONE (10:29)
--- NOTE | 2022-07-18 12:34 | FL ---
Intraoperative/procedural fluoroscopic services were provided. Total fluoroscopy time is 49 seconds w ith a total of 6 submitted images to PACS. Please see the operative/procedural note for further detai ls.
[2022-07-18] MEDS ORDERED: HYDROmorphone 1 MG/ML 1 ML SYRINGE IVP PRN (12:42)
[2022-07-18] MEDS ORDERED: HYDROcodone/APAP 10-325MG 1 EACH TAB PO PRN (12:42)
[2022-07-18] MEDS ORDERED: SENNOSIDES-DOCUSATE SODIUM 1 EACH TAB PO PRN (12:42)
[2022-07-18] MEDS: HYDROmorphone 0.5 MG/0.5 ML SYRINGE IVP PRN ×5 (13:58→16:30)
[2022-07-18] MEDS ORDERED: ALBUTEROL NEBULIZED 2.5 MG/3 ML INHALATION PRN (16:04)
--- NOTE | 2022-07-18 16:48 | XR ---
EXAMINATION TYPE: XR chest 1V portable DATE OF EXAM: 07/18/2022 COMPARISON: NONE HISTORY: Chest pain TECHNIQUE: Single view FINDINGS: There is some linear density in the lower lung sprague bilaterally. No heart failure. Heart size is normal. There are chest leads. There are no hilar masses IMPRESSION: Bilateral subsegmental atelectasis. No heart failure seen.
[2022-07-18] MEDS ORDERED: LACTATED RINGERS 1,000 ML IV ONE (17:46)
[2022-07-18] MEDS: CYCLOBENZAPRINE 5 MG TAB PO PRN (18:13)
[2022-07-18] MEDS: GABAPENTIN 300 MG CAP PO SCH ×2 (18:13→20:58)
[2022-07-18] MEDS: HYDROcodone/APAP 5-325MG 1 EACH TAB PO PRN (19:47)
[2022-07-18] MEDS: ALBUTEROL NEBULIZED 2.5 MG/3 ML INHALATION SCH (20:35)
[2022-07-18] MEDS: TAMSULOSIN 0.4 MG CAP.ER.24H PO SCH (20:58)
[2022-07-18] MEDS ORDERED: lisinopriL 10 MG TAB PO SCH (21:00)
[2022-07-19] MEDS: HYDROcodone/APAP 5-325MG 1 EACH TAB PO PRN (02:09)
--- NOTE | 2022-07-19 02:16 | CONS ---
CONSULTATION REASON FOR CONSULTATION: 1. Asthma. 2. Multiple medical issues, requested by surgery. HISTORY OF PRESENT ILLNESS: This 67-year-old gentleman with a past medical history of multiple medical issues, bronchial asthma, underwent cervical surgery by Dr. Hidalgo. The patient is complaining of some cough with some congestion at this time. There is no history of any fever, rigors, chills at this time. PAST MEDICAL HISTORY: Reviewed include history of asthma. HOME MEDICATIONS: Reviewed include Zestril, dose and rest of medication noted. ALLERGIES: House dust. FAMILY HISTORY: History of cancer. SOCIAL HISTORY: Occasional alcohol. REVIEW OF SYSTEMS: A 14-point review is negative as mentioned earlier. PHYSICAL EXAMINATION: VITAL SIGNS: Pulse is 88, blood pressure 161/76, respirations 16. HEENT: Conjunctivae normal. NECK: No jugular venous distention. CARDIOVASCULAR: S1, S2 muffled. RESPIRATIONS: At the bases, a few scattered rhonchi. No crackles. ABDOMEN: Soft, nontender. LEGS: No edema, no swelling. status post surgery. SKIN: No ulcer, no rash. LABS: Not available. ASSESSMENT: 1. Status post cervical fusion for degenerative joint disease. 2. Asthma. 3. Hypertension. 4. Multiple medical issues. RECOMMENDATIONS: This 67-year-old gentleman presented after surgery. At this time, I recommend continue the current medication. I recommended a course of nebulizers, incentive spirometry. I would also recommend DVT prophylaxis, resume the home medications. Also recommend baseline chest x-ray to rule out the possibility of any fluid overload also. We will follow the patient closely. TONJA / IJN: [id number] / XOCHITL
[2022-07-19] MEDS: GABAPENTIN 300 MG CAP PO SCH ×2 (07:30→15:43)
[2022-07-19] MEDS: CYCLOBENZAPRINE 5 MG TAB PO PRN (07:30)
[2022-07-19] MEDS: TAMSULOSIN 0.4 MG CAP.ER.24H PO SCH (07:31)
[2022-07-19] MEDS: ALBUTEROL NEBULIZED 2.5 MG/3 ML INHALATION SCH ×2 (08:08→11:37)
[2022-07-19 08:48] VITALS: RESP 18
[2022-07-19 08:54] LABS: Basophils # (A) 0.01 X 10*3/uL (0.00-0.10); Basophils % (A) 0.1 %; Eosinophils # (A) 0.03 X 10*3/uL (0.04-0.35); Eosinophils % (A) 0.3 %; HCT 35.8 % (39.6-50.0); HGB 12.3 g/dL (13.0-17.0); Immature Grans, Automated 0.2 %; Lymphocytes # (A) 0.93 X 10*3/uL (0.90-5.00); Lymphocytes % (A) 10.6 %; MCH 29.8 pg (27.0-32.0); MCHC 34.4 g/dL (32.0-37.0); MCV 86.7 fL (80.0-97.0); Mean Platelet Volume 10.8 fL (9.5-12.2); Monocytes # (A) 0.72 X 10*3/uL (0.20-1.00); Monocytes % (A) 8.2 %; NRBC Per 100 WBC 0 /100 WBCS (0.0-0.0); Neutrophils # (A) 7.07 X 10*3/uL (1.80-7.70); Neutrophils % (A) 80.6 %; Platelet Count 133 X 10*3/uL (140-440); RBC 4.13 X 10*6/uL (4.40-5.60); WBC 8.78 X 10*3/uL (4.50-10.00)
[2022-07-19] MEDS ORDERED: FLUTICASONE 50MCG/SPRAY NASAL 16GM EA NOSTRIL SCH (09:00)
[2022-07-19] MEDS ORDERED: MULTIVITAMINS, THERA 1 EACH TAB PO SCH (09:00)
--- NOTE | 2022-07-19 09:11 | P.PN ---
Subjective Progress Note Date: 07/19/22 Principal diagnosis: Cervical spondylosis Patient seen and examined at bedside. Patient was sitting up in bed and eating breakfast. He states he tolerated well, no difficulty swallowing. Overall patient states he feels improvement since procedure, denies any numbness tingling to bilateral upper extremities. ATA drain was removed this morning from surgical site, surgical dressing changed. Patient states he is ready for discharge. He denies fevers/chills, nausea/vomiting, or chest pain. Objective - Vital Signs Vital signs: Vital Signs Temp 97.8 F 07/19/22 08:00 Pulse 63 07/19/22 08:00 Resp 18 07/19/22 08:00 BP 161/73 07/19/22 08:00 Pulse Ox 96 07/19/22 08:09 FiO2 Intake & Output 07/18/22 07/19/22 07/19/22 18:59 06:59 18:59 Intake Total 2400 296 Output Total 255 5 Balance 2145 -5 296 Weight 105.5 kg Intake: IV 2400 Oral 296 Output: Drainage 5 Anterior 5 Urine 180 Estimated Blood Loss 75 Other: Voiding Method Toilet # Voids 1 3 - Exam Physical Examination General: The patient is awake and alert, in no acute distress Skin: Skin is warm and dry with no obvious rashes or lesions. Hairy patches absent, no dorsal skin dimples, no cafe au lait spots. Surgical incision to anterior cervical. Eye: Pupils are equal, round and reactive to light, extra-ocular movements are intact; there is normal conjunctiva bilaterally. Neck: The neck is supple, there is slight tenderness and ROM limited secondary to pain and stiffness from surgical procedure. Cardiovascular: There is a regular rate and rhythm. No murmur, rub or gallop is appreciated. Respiratory: Lungs are clear to auscultation, respirations are non-labored, breath sounds are equal. Gastrointestinal: Soft, non-distended, non-tender abdomen . Back: There is no tenderness to palpation in the midline, paralumbar, parathoracic or buttocks region. There is no obvious deformity . Musculoskeletal: Shoulder abduction 5/5, elbow flexors 5/5, wrist dorsiflexors 4/5. finger abductor 4/5, dbas 4/5, hip flexor 5/5, knee flexor 5/5, ankle dorsiflexor 5/5, ankle plantarflexion 5/5 and extensor hallucis 5/5. Neurological: CN 2-12 intact. There are no obvious motor or sensory deficits. Movement and coordination equal and intact. Sensory exam to light touch intact C5-T1 and intact from L2-S1. Reflexes 2/4 in bilateral upper and lower extremities. Negative Hoffmans, babinski, and clonus signs. Psychiatric: Cooperative, appropriate mood & affect, normal judgment. - Labs CBC & Chem 7: 07/19/22 05:34 Labs: Abnormal Lab Results - Last 24 Hours (Table) 07/19/22 Range/Units 05:34 RBC 4.13 L (4.40-5.60) X 10*6/uL Hgb 12.3 L (13.0-17.0) g/dL Hct 35.8 L (39.6-50.0) % Plt Count 133 L (140-440) X 10*3/uL Eosinophils # 0.03 L (0.04-0.35) X 10*3/uL Assessment and Plan Assessment: Post Op day 1 Anterior Cervical C4-C5, C6-C7 discectomy and fusion Plan: Plan: -Appreciate pricing consultant and team management. -Activity: Ambulate QID, OOB all meals, up and about, limit lifting bending twisting to less than 5 lbs. Use walker or cane if needed for stability. -Daily PT/OT, increase ambulation strength and balance. -Brace when up and about, not needed in bed or chair -Pain control: Adequate at this time -Meds: reviewed -GI ppx: senna, Miralax -DVT PPX: OK to restart Heparin tonight -Hygiene: Shower today. Maintain dressing clean and dry. Change Daily, may leave open to air when there is no drainage. -Drains: discontinued this am -Encourage IS 10x/hr -Dispo: Anticipate discharge home today with homecare *I reviewed and discussed this case with my attending Dr. Hidalgo, whom has reviewed this chart and films and is in agreement with assessment and plan of care as outlined above. I have personally seen and examined the patient, performed the documentation and the assessment and plan as written. Number of minutes spent on the visit: [ ].
--- NOTE | 2022-07-19 11:08 | CT ---
EXAMINATION TYPE: CT cervical spine wo con CT DLP: 534 mGycm, Automated exposure control for dose reduction was used. DATE OF EXAM: 07/19/2022 10:59 AM COMPARISON: 07/08/2022.. CLINICAL INDICATION:Male, 67 years old with history of s/p c4-5 C6-C7 ACDF; TECHNIQUE: Axial CT images from the skull base to the inferior aspect of T2 we obtained without intra venous contrast. Coronal and sagittal reformatted images were also reviewed. FINDINGS: Fracture: None. Osseous structures: Fixation changes involving C4-C5 and C5-C6. Discectomy changes are at this level. The hardware appears intact without evidence for loosening. There is additional multilevel disc dege neration changes seen throughout the spine with osteophytes and disc space narrowing. Vertebral alignment: Alignment within normal limit Spinal canal/Neural Foramina: Disc osteophyte complex at C4-C5 and C6-C7 results in at least mild spi nal canal stenosis. Facet joint and uncovertebral joint arthropathy result in moderate right neural f oraminal stenosis at C4-C5 and C5-C6 and moderate left neural foraminal stenosis at C6-C7. Neck soft tissues: Prevertebral soft tissues are within normal limits. Other: The airway is patent. The lung apices are clear. IMPRESSION: 1. No evidence of cervical spine fracture. 2. Postsurgical changes with hardware intact and in place. There remains at least mild spinal canal s tenosis at C4-C5 and C6-C7. 2. Multilevel neural foraminal stenosis as described above.
--- NOTE | 2022-07-19 13:18 | P.EN ---
Patient will require a nebulizer on discharge to continue with albuterol nebulized treatments 4 times a day to manage COPD
[2022-07-19 13:35] VITALS: BP 127/67; PULSE 88; TEMP 98.5
--- NOTE | 2022-07-19 14:17 | P.DS ---
Providers Date of admission: 07/18/22 08:28 Expected date of discharge: 07/19/22 Attending physician: Simon Hidalgo DO Consults: 07/18/22 14:57 Consult Physician Routine Consulting Provider: Juan Ramon Hauser Reason/Comments: Medical Management Do you want consulting provider notified?: Yes Primary care physician: Juan Ramon Hauser [facility] Course: Hospital Course: The patient was evaluated preoperatively and found to have the diagnosis of cervical stenosis. They underwent appropriate preoperative care and were willing to undergo the intended procedure. They underwent a successful anterior cervical C4-C5, C6-C7 discectomy and fusion, were recovered appropriately and sent to the floor. While on the floor they worked with physical therapy, occupational therapy and nursing to enhance their recovery experience. Their pain was well controlled through their stay and they were started on appropriate medications, DVT ppx modalities, activity and dietary needs. Daily labs were monitored closely, and transfusions were only used when necessary. Medicine as well as other consulting services have made their input and have helped with our team approach and multidisciplinary care. PT milestones have been met and passed and they have made the recommendation of home with home care for this patient and treating providers agree with this care path. The patient will be discharged home with appropriate medications, instructions and follow-up information and in stable condition. Patient Condition at Discharge: Good Plan - Discharge Summary Discharge Rx Participant: Yes New Discharge Prescriptions: New cefaDROXiL [Duricef] 500 mg PO Q12HR 3 Days #6 cap Cyclobenzaprine [Flexeril] 5 mg PO TID #90 tablet Gabapentin 300 mg PO TID #90 cap HYDROcodone/APAP 5-325MG [[place] 5-325] 1 - 2 tab PO Q6HR PRN #56 tab PRN Reason: Pain Albuterol Nebulized [Ventolin Nebulized (Accuneb)] 3 ml INHALATION Q6H 12 Days #150 ml No Action Multivitamins, Thera [Multivitamin (formulary)] 1 tab PO DAILY Ibuprofen [Motrin Ib] 400 mg PO Q8H PRN PRN Reason: Pain Aspirin [Adult Low Dose Aspirin EC] 81 mg PO DAILY Sildenafil [Revatio] 20 mg PO DIRECTED PRN PRN Reason: ERECTILE DYSFUNCTION Mometasone Furoate [Nasonex Nasal Corinne] 2 spr EA NOSTRIL DAILY Albuterol Inhaler [Ventolin Hfa Inhaler] 2 puff INHALATION RT-QID PRN PRN Reason: asthma sx lisinopriL [Zestril] 30 mg PO HS Tamsulosin [Flomax] 0.4 mg PO BID Discharge Medication List Albuterol Inhaler [Ventolin Hfa Inhaler] 2 puff INHALATION RT-QID PRN 11/04/20 [History] Aspirin [Adult Low Dose Aspirin EC] 81 mg PO DAILY 11/04/20 [History] Ibuprofen [Motrin Ib] 400 mg PO Q8H PRN 11/04/20 [History] Mometasone Furoate [Nasonex Nasal Corinne] 2 spr EA NOSTRIL DAILY 11/04/20 [History] Multivitamins, Thera [Multivitamin (formulary)] 1 tab PO DAILY 11/04/20 [History] Sildenafil [Revatio] 20 mg PO DIRECTED PRN 11/04/20 [History] Tamsulosin [Flomax] 0.4 mg PO BID 11/04/20 [History] lisinopriL [Zestril] 30 mg PO HS 11/04/20 [History] Albuterol Nebulized [Ventolin Nebulized (Accuneb)] 3 ml INHALATION Q6H 12 Days #150 ml 07/19/22 [Rx] Cyclobenzaprine [Flexeril] 5 mg PO TID #90 tablet 07/19/22 [Rx] Gabapentin 300 mg PO TID #90 cap 07/19/22 [Rx] HYDROcodone/APAP 5-325MG [[place] 5-325] 1 - 2 tab PO Q6HR PRN #56 tab 07/19/22 [Rx] cefaDROXiL [Duricef] 500 mg PO Q12HR 3 Days #6 cap 07/19/22 [Rx] Follow up Appointment(s)/Referral(s): [facility] [NON-STAFF] - As Needed (Nebulizer) Juan Ramon Hauser MD [Primary Care Provider] - 1 Week Simon Hidalgo DO [Doctor of Osteopathic Medicine] - 2 Weeks Lnia Rossi [NON-STAFF] - As Needed (C Collar) Activity/Diet/Wound Care/Special Instructions: Spine Discharge and Recovery Instructions Date of Surgery: 07/18/2022 Diagnosis: Cervical spondylosis Procedure: Anterior cervical C4-C5, C6-C7 discectomy and fusion Medications: See medication list All medication refills should be obtained through your primary care doctor or your clinic spine surgeon. Please discuss prescription refills at your follow up appointment. Do not call the hospital for medication refills. Dressing: Leave your dressing in place for a total of 5 days post operatively. Then you may remove your dressing and leave open to air. Keep the area clean and if not able to keep area clean, then cover with sterile gauze and tape. Showering: You may shower 3 days after your procedure allowing soap and water to run over incision. Do not scrub. Do not soak. Blot dry. Follow up: Please confirm a follow up appointment with your surgeon 3 weeks post operatively. Please make an appointment to follow up with your PCP in 1-2 weeks after surgery for evaluation 3 phase, 3-week plan POST OP WEEKS 1-3 1. Lifting/carrying/pushing/pulling limited to less than 5 pounds. 2. Do not sit for longer than 15 minutes at one time. Get up and walk around. Prolonged sitting is NOT advised. If you lay down, see if you can tolerate laying down on you front (belly side) 3. Walk for periods of 15 minutes = 1 mile but no longer; do it multiple times times each day. 4. Ice your low back after activity. POST OP WEEKS 3-6 1. Lifting limited to less than 20 pounds. 2. Do not sit for longer than 30 minutes at a time. Frequently change positions. Use a sit-to stand workstation or take frequent breaks from sitting if you have returned to work. 3. Walk for 30 minutes each day. If possible, do these three or more times a day POST OP WEEKS 6+ At your 6-week appointment we will give you a physical therapy referral to focus on a core stabilization and strengthening program. You should also work on leg & buttock strengthening, hamstring & quadriceps stretching, and continue a low impact aerobic activity program such as swimming, walking, or riding a stationary bicycle. During the initial 6 weeks after your surgery, you are at the highest risk of re-injuring your spine. You should generally avoid BLTs (bending, lifting and twisting combination motions) and follow the above guidelines to reduce the chance of reinjury. You can anticipate post op appointments in our office at approximately 3 weeks and 6 weeks after your surgery. INCISION CARE: If your incision is not draining you do NOT need to cover it with a dressing. Keep your incision clean, dry and intact. In most cases, we apply skin glue, eusebio or sutures to the incision at the time of surgery. This will be like a crust or have the appearance of a scab and will fall off in time on its own. The stitches or eusebio need to be removed at 3 weeks post op appointment. You may begin to shower 3 days after surgery (this allows the glue to hensley well). However, please avoid scrubbing the incision site or peeling off any of the skin glue. This will ensure optimal healing of your incision. Also, during this time avoid soaking the incision area in water - this includes swimming pools, hot tubs or baths. No ointments, lotions or oils on the incision until your surgeon allows. Leave eusebio, sutures or glue in place. Neurological dysfunction that comes on suddenly can also be a sign of a stroke. Below some common symptoms of a stroke are listed: B - balance difficulty such as sudden onset walking or leaning to one side - NEW E - eye problem such as sudden double vision or trouble seeing on one side - NEW F - Facial weakness or numbness on one side - NEW A - Arm or leg weakness or numbness on one side - NEW S - Slurred speech or difficulty with word finding - NEW T - Time is BRAIN! Call 911 as soon as you recognize these symptoms Diet: Consume a regular diet rich in vegetables and lean protein such as chicken or fish. You should consume in a ratio of approximately 20% fats|40% carbohydrates|40%protein. Vegetables, sweet potatoes, brown rice or quinoa are examples of good carbohydrates. Chips, white bread, cookies and sweets/sugar are examples of bad carbohydrates. Limit your bad carbs, go wild with good carbs. "Life's Simple 7" Guidelines as per [place] [employer] These will help you reclaim your life after surgery and helpdesk specialist in your recovery, keeping in mind your restrictions. (1) Get Active. Physical activity can help people lose weight, control high blood pressure and cholesterol, feel emotionally better, and sleep better. (2) Control Cholesterol. Avoid a diet high in saturated fat, trans fat, & cholesterol. Limit whole milk & cream, ice cream, butter, egg yolks, processed meats (like sausage and hot dogs), and fatty meats. Choose healthy foods that are low in saturated fat, trans fat and cholesterol which include: Fruits and vegetables, fiber rich grain products (like whole grain pasta and brown rice), lean meat such as chicken, fish, nuts, seeds, and legumes. (3) Eat Better. Eat small portions. Shop at the grocery with a list and do not stray from it. Tips for a healthy diet include: Limit sodium intake to less than 1500mg daily, avoid prepackaged, processed, and fast foods, choose a diet rich in fruits, vegetables, and whole grain, high fiber foods, and limit saturated & cholesterol in your diet. (4) Manage Blood Pressure. If you have high blood pressure, you should have a cuff at home so that you can check your blood pressure regularly. Be sure you have a good cuff. An arm one is generally better than a wrist one. Bring the cuff to a doctor's appointment to validate that the measurements that your cuff are taking are accurate. Take your blood pressure twice daily when you are sitting down and relaxing. Record the numbers in a log and bring this log with you to your doctors' appointments. (5) Lose Weight if your BMI is above 25. A healthy BMI is between 19-25. To calculate Your BMI, you may use a Standard BMI Calculator on the NIH BMI website: <www.nhlbi.nih.gov/guidelines/obesity/BMI/bmicalc.htm>. Weigh oneself daily. If you are overweight, set a goal to lose weight. A pound a week loss if needed is a good target. (6) Reduce Blood Sugar. Limit foods and liquids with "added sugars." (Added sugars include sucrose, fructose, glucose, maltose, dextrose, high fructose corn syrup, corn syrup, concentrated fruit juice and honey). (7) Stop Smoking. If you smoke, quitting smoking is one of the best things that you can do for your health. Smoking increases your risk of heart attack, stroke, and peripheral vascular disease, which is a build-up of plaque in your arteries. Please discard all the cigarettes and lighters in your house. Have a plan for what you will do when you have the urge to smoke. Direct and second- hand smoke shortens your life as well as the lives of your family, friends and others around you. For your health and the health of those around you, please consider quitting! Proper Bending Body Mechanics: Maintain a wide stance with one foot slightly in front of the other. Keep your back straight. Bend utilizing the strength in your hips and knees. Do not bend at the waist. Maintain the lifted object at your waist-level close to your body. Avoid lifting weight that causes immediately pain or pain anywhere in the body afterwards. Smoking/Nicotine If there was ever one thing that you could do to increase your overall health, decrease your risk of cardiovascular problems by about 39% the second you make the choice, it is to STOP SMOKING. Your body's most instant gratification is the second you stop smoking. We have all heard the studies, read the articles but it is true, smoking is extremely bad for your overall health, and moreover it is detrimental to your bone health. Nicotine, IN ANY FORM, kills bone cells, prevents your body from healing fractures, and significantly prolongs healing after surgery. In spine surgery specifically, it increases your risk of not healing your bones to create a fusion and increases your risk of having a revision surgery due to this up to 60%. I know it is hard. I know it feels impossible. But there are ways. Take control of your life. We are here to help you through it. And when you are ready, ask us and we can direct you to help if you desire. Use the START Plan to Quit Smoking (please visit the Helpguide.org website listed below for more information): S = Set a quit date. Choose a date within the next 2 weeks, so you have enough time to prepare without losing your motivation to quit. If you mainly smoke at work, quit on the weekend, so you have a few days to adjust to the change. T = Tell family, friends, and co-workers that you plan to quit. Let your friends and family in on your plan to quit smoking and tell them you need their support and encouragement to stop. Look for a quit tigist who wants to stop smoking as well. You can help each other get through the rough times. A = Anticipate and plan for the challenges you'll face while quitting. Most people who begin smoking again do so within the first 3 months. You can help yourself make it through by preparing ahead for common challenges, such as nicotine withdrawal and cigarette cravings. R = Remove cigarettes and other tobacco products from your home, car, and work. Throw away all your cigarettes (no emergency pack!), lighters, ashtrays, and matches. Wash your clothes and freshen up anything that smells like smoke. Shampoo your car, clean your drapes and carpet, and steam your furniture. T = Talk to your doctor about getting help to quit. Your doctor can prescribe medication to help with withdrawal and suggest other alternatives. If you can't see a doctor, you can get many products over the counter at your local pharmacy or grocery store, including the nicotine patch, nicotine lozenges, and nicotine gum. Resources for Quitting Smoking: <https://www.[place].gov/documents/[facility]/Quit_Tobacco_Resources_for_patients_313 480_7.pdf> Supplementation: Take recommended dosages of Vitamin D and Calcium to help fortify your bones and help them to heal. See your health maintenance packet for dosages and recommended levels. DVT/VTE prophylaxis: You will be given compression stockings from the hospital. Wear these daily for the first two weeks after surgery. You may take them off at night. You may be prescribed a medication to help thin your blood. Take this as directed. If you are not prescribed this medication, early and frequent ambulation has been shown to be the best prophylaxis to deep vein thrombosis and sequelae related to this event. Discharge Disposition: HOME WITH HOME HEALTH SERVICES
[2022-07-19] MEDS ORDERED: oxyCODONE-APAP 7.5-325MG 1 EACH TAB PO STA (14:28)
--- NOTE | 2022-07-20 04:53 | PN ---
PROGRESS NOTE SUBJECTIVE: This is a 67-year-old gentleman, admitted after cervical surgery, had asthma as well as atelectasis. The patient is receiving at this time. The pulse ox is being maintained at 97% on room air. Dr. Hidalgo is planning to discharge today. PHYSICAL EXAMINATION: VITAL SIGNS: Pulse is 63, blood pressure 161/73, respirations 18. HEENT: Conjunctivae normal. NECK: No jugular venous distention. CARDIOVASCULAR: S1, S2 muffled. RESPIRATIONS: At the bases, a few scattered rhonchi. ABDOMEN: Soft, nontender.. NERVOUS SYSTEM: No focal deficit. EXAMINATION OF THE NECK: Status post surgery. LABS: Reviewed. ASSESSMENT: 1. Status post cervical fusion for degenerative joint disease. 2. Asthma. 3. Hypertension. 4. Atelectasis bilaterally. 5. Multiple medical issues. RECOMMENDATIONS AND DISCUSSION: I recommend to continue current management and symptomatic treatment. I would recommend a short course of followed by continuation of the inhalers and follow up chest x- ray if the patient continues to be symptomatic with Dr. Hauser's office. Otherwise, continue the rest of the medications and rest of the recommendations per Orthopedic Surgery. Further recommendations to follow. MMODL / IJN: [id number] / MTDD
--- NOTE | 2022-07-20 08:23 | P.OP ---
Date of Procedure: 07/18/22 Preoperative Diagnosis: 1. 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 C4-5 and C6-7 severe ASD with spondylosis and stenosis 3. UE radiculopathy, paresthesias and weakness 4. Begining cervical myelopathy Postoperative Diagnosis: 1. 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 C4-5 and C6-7 severe ASD with spondylosis and stenosis 3. UE radiculopathy, paresthesias and weakness 4. Begining cervical myelopathy Procedure(s) Performed: 1. Anterior right side Garrett Ham approach to cervical spine 2. Anterior interbody arthrodesis C4-5 (94088) 3. Anterior interbody arthrodesis C6-7 (07462) 4. Insertion of biomechanical device C4-5 and C6-7 ([id number]) 5. Application of non integrated anterior plate C4-5 and C6-7 ([id number]) 6. Use of intraoperative microscope for visualization of surgical field and elements. (11060) 7. Use of intraoperative neuromonitoring 8. Interpretation of intraoperative flouroscopic images <1 hr (38228) Implants: -Choice Spine [place] shark interbody cage 8mm x 6 deg lordotic x2 -Choice Spine Boomerang anterior plate 13 mm x2 -Autograft -Allograft -Bio4 Anesthesia: GETA Surgeon: Simon Hidalgo Computer Hardware Designer #1: Martinez Swann (Was present and assisted in all aspects of the case) Estimated Blood Loss (ml): 75 IV fluids (ml): 250 Urine output (ml): 300 Pathology: none sent Condition: stable Disposition: PACU Indications for Procedure: 67 yo male who has had symptoms of neck pain, arm pain, arm numbness, weaknes and paresthesias for the last year presented today for surgical intervetion. He, for the past year, has gone through conservative measures for treatment of his neck issues without sx resolution or improvement. He was directed by his insurance to seek [facility] which did not help him. He has a hx of Klippel Feil syndrome with autofusion of C5-6 and adjacent segment disease of C4-5 and C6-7 with severe spondylotic changes as well as stenosis leading to his arm weakness, difficutly with fine motor skills and as of the past few months gait instability. He has tried all conservative measures including PT, HEP, OT, Rx, OTC meds, Injections without improvement. We discussed different surgical options and he would like to, if able, have disc replacement at the upper levels and fusion of the lower levels. This is appropriate give his pathology. We discussed that he may still need fusion at the upper levels at the time of surgery depending on his bone quality as well as the disc space, need for decompression and possible immobilization and he understands and is comfortable with me making that decision intraop. We discussed risks and benefits as discussed in risk review and he is willing to accept these. We discussed different outcomes and he is comfortable with these. He is ready and willing to proceed with surgery. Description of Procedure: The patient was seen and examined in the preoperative area. All preoperative protocols were followed. Informed consent was obtained risks and benefits of the procedure were discussed at length. Risks including bleeding infection damage to the surrounding tissue and risk of reoperation were discussed with the patient. Risk of anesthesia up to and including was a discussed with the patient. These are outlined in the risk review. They were willing to accept these risks and all of the risks of surgery. The patient was given a weight- based dose of antibiotics in the form of 2 g Ancef. The patient was seen and evaluated by the anesthesia team who deemed them fit for surgery. The site was marked, the patient was willing to proceed with the procedure. The patient was transferred to the operative suite by the Department of anesthesia. They were then drifted off to sleep by the department anesthesia and GETAwas performed. The patient tolerated this well. [Wright catheter was placed by nursing staff, atraumatically]. Once confirmation of lines and ventilation the patient was transferred to a supine flattop Justin table very carefully. All bony prominences including wrists, elbows, axilla, chest, hips, and thighs, and feet were padded very well. arms were tucked at his side well-pa dded and the shoulders were gently taped down to the table. Special attention was paid to the genitalia and these were padded accordingly. SCDs were placed on bilateral lower extremities and were connected. Once in position, again we confirmed good ventilation capabilities and that lines were running appropriately. The patient's anterior cervical spine was then exposed. 1010s were placed outlining the incision site. Standard alcohol was used to clean the incision site and allowed to dry. C-arm was used to biomark the patient and confirm level for incision which was marked with a skin marker. Operative briefing was performed with all teams and everyone in agreement to proceed. The patient was then prepped and draped in a normal sterile fashion. Timeout was then performed and all parties were in agreement with the procedure to be performed. skin incision was made over the previously by Bradly. Transverse 4 cm the right- hand side and a standard Garrett-Marin approach. The platysma fibers were split longitudinally with their fiber lengths. Dissection was taken down in the interval was exploited between the medial structures SCM and omohyoid was identified. Dissection was taken down on to the anterior spine which was identified and blunt probe used to bradly levels lateral fluoroscopic image with blunt probe in place and confirmed levels for surgery. Then identified the longissimus muscles bilaterally and perform subperiosteal dissection elevating these up. Retractor was then placed deep to this. Anterior osteophytes removed with rongeur. Operating microscope was then brought in. [place] pins were placed in C6 and C7 respectively under fluoroscopic guidance. Distraction was placed and careful dissection was placed over the graft. Lampron rongeur was used to remove disc material. Then performed complete discectomy anteriorly using curettes and scraping endplates of any disc material or cartilage material. High-speed bur was then used to remove osteophytes anteriorly and posteriorly on the C6 vertebral body as well as posteriorly on the C7 vertebral body. PLL was identified and resected with 60 up-biting curette and 20 Kerrison. We then performed bilateral foraminotomy using 2130 Kerrisons. Complete decompression was confirmed in this area taken was hemostasis performed. We then irrigated the disc space and placed trial spacers under lateral fluoroscopic guidance once we confirmed the size for the spacer final implant was selected and packed with autograft as well as spinal 4. This is then impacted into place under lateral fluoroscopic guidance AP confirmed good central placement. We then selected a plate size for the area and this plate was then placed using fluoroscopic guidance we drilled holes for the plate and then placed screws. the screws had good purchase and the locking mechanism was set anteriorly. The wound was irrigated and was then removed from C7 and C6 respectively and bone wax placed in the void. We then turned our attention to the C4-C5 interspace. Retractors were replaced once elevation of the longissimus muscles and been accomplished bilaterally. We then performed complete discectomy at C4-C5 using a Lempert rongeur. [place] pins were placed in C4-C5 respectively and careful dissection was taken across this joint. Lateral fluoroscopic guidance confirmed and performed complete discectomy using Hernandez rongeur Kerrison rongeur and to a curet. High-speed bur was then used to remove osteophytes anteriorly and posteriorly she will always then identified and resected using 60 curet as well as 20 Kerrison bilateral foraminotomies performed. Complete decompression was confirmed and meticulous hemostasis performed. Disc space is then irrigated and trials were placed once adequate sizing of been achieved under lateral fluoroscopic guidance the final implant was placed AP confirmed essentially located placement. Once this performed distraction was taken off and pins removed bone wax were placed in the void. We then sized a plate for this area as well and on integrated plate was then placed. Screw holes were drilled and screws placed under lateral fluoroscopic guidance. Good screw purchase was obtained and the interlocking mechanism was set. Then copiously irrigated the wound with normal sterile saline. Final inspection showed good placement as well as locked screws. No injury to surrounding structures. Final AP and lateral imaging showed good hardware placement and reduction decompression. We then irrigated one more time search the wound along with a deep drain out a separate hole. This was then sewn into position. We then performed layered closure platysmal layer was closed with 3-0 Vicryl subcu closed with 3-0 Vicryl subcuticular layer closed with 40 strata fix and skin closed with skin glue. Glue was allowed to dry and dressing was then placed. The patient was transferred back to their hospital bed atraumatically. [Drain continued to hold suction and were in good position]. Patient was then awakened and extubated by the department of anesthesia having tolerated the procedure very well with no complications. They were transferred to the postoperative care unit in stable condition.
== END 2022-07-19 16:51 | disposition home health service (06) ==
LOC: INTOOBSV 08:28 → 2ORMAIN 08:28 → 5NMEDONC 12:54 → 4SSUR 17:17 → UNDODISIN 07-19 16:51
PROVIDERS: ADMIT Orthopaedic Surgery; ATTEND Orthopaedic Surgery
PROC: 0RT30ZZ Resection of Cervical Vertebral Disc, Open Approach (ICD-10-PCS; 2022-07-18)
PROC: 0RG20A0 Fusion of 2 or more Cervical Vertebral Joints with Interbody Fusion Device, Anterior Approach, Anterior Column, Open Approach (ICD-10-PCS; principal; 2022-07-18 10:15)
DX: M48.02 Spinal stenosis, cervical region (principal); M47.12 Other spondylosis with myelopathy, cervical region; Q76.1 Klippel-Feil syndrome; M25.78 Osteophyte, vertebrae; J45.990 Exercise induced bronchospasm; I10 Essential (primary) hypertension; G47.33 Obstructive sleep apnea (adult) (pediatric); H91.91 Unspecified hearing loss, right ear; N39.498 Other specified urinary incontinence; M54.12 Radiculopathy, cervical region; N40.1 Benign prostatic hyperplasia with lower urinary tract symptoms; Z79.82 Long term (current) use of aspirin; Z79.899 Other long term (current) drug therapy; Z91.048 Other nonmedicinal substance allergy status; Z90.49 Acquired absence of other specified parts of digestive tract; Z98.890 Other specified postprocedural states; Z80.0 Family history of malignant neoplasm of digestive organs; Z80.41 Family history of malignant neoplasm of ovary
CPT/HCPCS: 22551; 22552; 22853 ×2; 20930; 20937; 22845; 94760; 97161; 85025; 72040; 71045; 72125; G0378 ×2; C1713; C1762 ×2; J2250; J0330; J1100; J0690 ×2; J2405; J3010; J1170 ×2; J2370; J2704; J2001; 86850; 86900; 86901

== ENCOUNTER → 2023-05-11 | Outpatient (CLI) | payer MEDICARE ==
--- NOTE | 2023-05-12 09:14 | NM ---
EXAMINATION TYPE: NM DatScan Brain SPECT DATE OF EXAM: 05/11/2023 COMPARISON: NONE HISTORY: Tremors TECHNIQUE: 10 drops of Lugol's solution was administered 1 hour prior to injection as a thyroid bloc carolina agent. After the administration of 4.72 mCi I-123 Ioflupane DaTscan. Images obtained 3 hours p ost injection. SPECT images of the brain were acquired with axial and coronal reconstructions. FINDINGS: The axial SPECT images demonstrate increased background activity and reduced activity withi n the bilateral striata. IMPRESSION: Abnormal appearance highly suggestive of idiopathic Parkinson's disease or Parkinsonian s yndrome.
== END | disposition home or self-care (01) ==
LOC: RADNMMAIN 10:42
PROVIDERS: ATTEND Internal Medicine Geriatric Medicine
DX: G20 Parkinson's disease (principal)
CPT/HCPCS: 78803; A9584

== ENCOUNTER → 2023-06-27 | Outpatient (CLI) | payer MEDICARE ==
--- NOTE | 2023-06-27 09:33 | CT ---
EXAMINATION TYPE: CT cervical spine wo con CT DLP: 566.9 mGycm, Automated exposure control for dose reduction was used. DATE OF EXAM: 06/27/2023 9:14 AM COMPARISON: 07/19/2022. CLINICAL INDICATION:Male, 68 years old with history of M54.2 CERVICALGIA; PHH, Neck pain and headache s. Bilateral arm weakness and shakiness. TECHNIQUE: Axial CT images from the skull base to the inferior aspect of T2 we obtained without intra venous contrast. Coronal and sagittal reformatted images were also reviewed. Contrast used: mL of , (if blank None) Oral contrast used: (if blank None) FINDINGS: Fracture: None. Osseous structures: Postsurgical changes to the spine with hardware C4-C5 and C6-C7. Hardware appears intact. There is straightening of the Vertebral alignment: Straightening of the alignment of the cervical spine. Spinal canal/Neural Foramina: No evidence of significant spinal canal narrowing. Facet joint uncovert ebral joint arthropathy scattered throughout the cervical spine with varying degrees of neural forami nal stenosis. Moderate C3-C4 bilateral, C4-C5 right, mild bilateral C5-C6 and moderate bilateral C6-C 7 neural foraminal stenosis. Neck soft tissues: Prevertebral soft tissues are within normal limits. Other: The airway is patent. The lung apices are clear. Atherosclerosis of the carotid bifurcations. IMPRESSION: 1. No evidence of cervical spine fracture. 2. Post surgical change hardware intact. There is multilevel at least moderate neural foraminal steno sis throughout the cervical spine.
== END | disposition home or self-care (01) ==
LOC: RADCTMAIN 08:46
PROVIDERS: ATTEND Orthopaedic Surgery
DX: M99.71 Connective tissue and disc stenosis of intervertebral foramina of cervical region (principal); M43.22 Fusion of spine, cervical region; R51.9 Headache, unspecified; R53.1 Weakness
CPT/HCPCS: 72125